=== PATIENT | female | born 1995 | race African-American/Black ===

== ENCOUNTER 2022-10-03 22:21 | Emergency (ER) | payer OTHER, SELFPAY ==
[2022-10-03 22:24] VITALS: BP 145/92; PULSE 97; RESP 16; TEMP 36.6; O2SAT 99
--- NOTE | 2022-10-03 22:51 | ED.WOUNDLAC ---
HPI - Wound/Laceration General Chief Complaint: Wound/Laceration Stated Complaint: Right hand lac Time Seen by Provider: 10/03/22 22:26 History of Present Illness HPI narrative: 26-year-old female reports for evaluation for a skin avulsion to her right thumb that occurred just prior to arrival. Patient states she recently cut her saw that she cut her and came to the ED due to uncontrolled bleeding. She is unsure of her last tetanus shot. Denies numbness or tingling, difficulty with range of motion. Related Data Allergies Allergy/AdvReac Type Severity Reaction Status Date / Time No Known Allergies Allergy Verified 10/03/22 22:22 Review of Systems Review of Systems: CONSTITUTIONAL: Denies fever, chills EYES: Denies visual changes, redness, or discharge. ENT: Denies rhinorrhea, congestion, sore throat, or otalgia. CARDIOVASCULAR: Denies chest pain, palpitations, or edema. RESPIRATORY: Denies cough or dyspnea. GASTROINTESTINAL: Denies abdominal pain, nausea, vomiting, or diarrhea. GENITOURINARY: Denies dysuria or hematuria. SKIN: See HPI MUSCULOSKELETAL: Denies back pain, joint pain, or myalgia. NEUROLOGIC: Denies headache, numbness, dizziness, or weakness. PSYCHIATRIC: Denies anxiety or depression. Exam Narrative: GENERAL: Well-appearing, in no acute distress. HEAD: Normocephalic NECK: Supple. CHEST: No respiratory distress. Clear to auscultation, no adventitious breath sounds. HEART: Regular rate and rhythm. No murmur heard. Normal peripheral pulses. EXTREMITIES: Normal range of motion. No edema. SKIN: 2 0.5cm superficial avulsions to the distal aspect of the right thumb with mild oozing. No deep structures or foreign bodies visualized. No nail or nailbed involvement. Cap refill less than 2. Range of motion intact. Sensation intact. NEURO: No focal deficits. Alert and oriented x3. PSYCH: Normal mood and affect. Course Vital Signs Vital signs: Vital Signs Temperature 97.8 F 10/03/22 22:24 Pulse Rate 97 10/03/22 22:24 Respiratory Rate 16 10/03/22 22:24 Blood Pressure 145/92 H 10/03/22 22:24 Pulse Oximetry 99 10/03/22 22:24 Oxygen Delivery Room Air 10/03/22 22:24 Temperature 97.8 F 10/03/22 22:24 Pulse Rate 97 10/03/22 22:24 Respiratory Rate 16 10/03/22 22:24 Blood Pressure 145/92 H 10/03/22 22:24 Pulse Oximetry 99 10/03/22 22:24 Oxygen Delivery Room Air 10/03/22 22:24 MDM - Wound/Laceration MDM Narrative Medical decision making narrative: 26-year-old female reports for evaluation for a skin avulsion to her right thumb after she accidentally cut her thumb that she cut her prior to arrival. Vital stable other than mildly elevated blood pressure. Exam significant for small avulsions to the distal aspect of the right thumb, bleeding controlled prior to discharge. She is neurovascularly intact, no nail involvement, no deep structures or foreign bodies visualized. Tetanus updated. Avulsion irrigated with normal saline, antibiotic ointment and dressing applied. Wound care discussed. Advise follow-up with PCP, referral provided. Strict ED return precautions discussed. She is agreeable to plan verbalized understanding. Discharged in stable condition. Medical Records Attestation: I reviewed the patient's medical records. Discharge Plan Discharge Clinical Impression: Avulsion of skin Patient Disposition: Home, Self-Care Condition: Stable Instructions: Antibiotic Form, Skin Avulsion (ED) Additional Instructions: Your evaluated emergency department for a skin avulsion. It was cleaned and dressed. Please change the dressings daily and apply antibiotic ointment as discussed. Your tetanus was also updated. Please follow-up with primary care provider and referred you to for reevaluation. Return to the emergency department if you develop signs or symptoms of infection including draining pus, redness, swelling, fever, or other concerning symptoms. Fo
[2022-10-03] MEDS: TETANUS,DIPHTHERIA,AC PERTUSSIS ADULT (0.5 ML) BOOSTRIX IM (22:55)
== END 2022-10-03 23:05 | disposition home or self-care (01) ==
PROVIDERS: Emergency Provider Physician Assistant
DX: S61.001A Unspecified open wound of right thumb without damage to nail, initial encounter (principal); Z23 Encounter for immunization; W27.4XXA Contact with kitchen utensil, initial encounter
CPT/HCPCS: 90471; 90715; 99282